=== PATIENT | female | born 1995 | race American Indian/Alaskan Native ===

== ENCOUNTER 2021-07-11 03:38 | Emergency (ER) | payer OTHER ==
[2021-07-11 03:45] VITALS: BP 137/85
--- NOTE | 2021-07-11 06:43 | Emergency Department Report ---
ED General Adult HPI - General Chief complaint: Skin/Abscess/Foreign Body Stated complaint: FB STUCK IN VAGINA Time Seen by Provider: 07/11/21 05:20 Source: patient Mode of arrival: Ambulatory Limitations: No Limitations - History of Present Illness Initial comments: 26-year-old female with with elevated BMI presents emerge department complaining of suspected foreign body in the vaginal canal in the form of a condom which was left in earlier this evening and she was unable to retrieve. She reports no fever, chills, sweats no chest pain palpitation no nausea no vomiting Severity scale (0 -10): 0 Consistency: constant Improves with: none Worsens with: none Associated Symptoms: denies other symptoms - Related Data Previous Rx's Medication Instructions Recorded Last Taken Type Doxycycline Hyclate [Doxycycline 100 mg PO Q12HR #20 tab 07/11/21 Unknown Rx Hyclate TAB] metroNIDAZOLE [Flagyl] 500 mg PO Q12HR #7 tab 07/11/21 Unknown Rx Allergies Allergy/AdvReac Type Severity Reaction Status Date / Time No Known Allergies Allergy Unverified 07/11/21 03:45 ED Review of Systems ROS: Stated complaint: FB STUCK IN VAGINA Other details as noted in HPI Comment: All other systems reviewed and negative ED Past Medical Hx - Past Medical History Previous Medical History?: No - Surgical History Past Surgical History?: No - Medications Home Medications: Home Medications Medication Instructions Recorded Confirmed Last Taken Type Doxycycline Hyclate [Doxycycline 100 mg PO Q12HR #20 tab 07/11/21 Unknown Rx Hyclate TAB] metroNIDAZOLE [Flagyl] 500 mg PO Q12HR #7 tab 07/11/21 Unknown Rx ED Physical Exam - General Limitations: No Limitations General appearance: alert, in no apparent distress - Head Head exam: Present: atraumatic, normocephalic - Eye Eye exam: Present: normal appearance - ENT ENT exam: Present: mucous membranes moist - Neck Neck exam: Present: normal inspection - Respiratory Respiratory exam: Present: normal lung sounds bilaterally. Absent: respiratory distress - Cardiovascular Cardiovascular Exam: Present: regular rate, normal rhythm. Absent: systolic murmur, diastolic murmur, rubs, gallop - GI/Abdominal GI/Abdominal exam: Present: soft, normal bowel sounds - External exam: Present: normal external exam Speculum exam: Present: vaginal discharge (Yellowish creamy vaginal discharge.), foreign body (Foreign body was visualized from the con[place]ium removed with a sponge forceps with no trauma), other Bi-manual exam: Present: normal bi-manual exam - Extremities Exam Extremities exam: Present: normal inspection - Back Exam Back exam: Present: normal inspection - Neurological Exam Neurological exam: Present: alert, oriented X3 - Psychiatric Psychiatric exam: Present: normal affect, normal mood - Skin Skin exam: Present: warm, dry, intact, normal color. Absent: rash ED Course Vital Signs 07/11/21 03:44 Temperature 98.5 F Pulse Rate 74 Respiratory 16 Rate Blood Pressure 137/85 [Left] O2 Sat by Pulse 100 Oximetry Critical care attestation.: If time is entered above; I have spent that time in minutes in the direct care of this critically ill patient, excluding procedure time. ED Disposition Clinical Impression: Vaginal foreign body, Vaginal discharge Disposition: 01 HOME / SELF CARE / HOMELESS Is pt being admited?: No Does the pt Need Aspirin: No Condition: Stable Instructions: Vaginal Foreign Body Prescriptions: Doxycycline Hyclate [Doxycycline Hyclate TAB] 100 mg PO Q12HR #20 tab metroNIDAZOLE [Flagyl] 500 mg PO Q12HR #7 tab Referrals: [facility] [Provider Group] - 3-5 Days [facility], [Primary Care Provider] - 3-5 Days
== END 2021-07-11 07:18 | disposition home or self-care (01) ==
LOC: ED 03:38
DX: T19.2XXA Foreign body in vulva and vagina, initial encounter (principal); N89.8 Other specified noninflammatory disorders of vagina; X58.XXXA Exposure to other specified factors, initial encounter; Y93.89 Activity, other specified; Y92.89 Other specified places as the place of occurrence of the external cause; Y99.8 Other external cause status
CPT/HCPCS: 99282; 99283

== ENCOUNTER 2022-01-24 11:41 | Emergency (ER) | payer OTHER ==
[2022-01-24] MEDS ORDERED: MORPHINE 4 MG/1 ML INJ IV ONE (13:59)
[2022-01-24] MEDS ORDERED: ONDANSETRON 4 MG/2 ML INJ IV ONE (13:59)
[2022-01-24 14:35] LABS: Hematocrit 38.5 % (30.3-42.9); Hemoglobin 12.9 gm/dl (10.1-14.3); Mean Corpuscular HGB Conc 34 % (30-34); Mean Corpuscular Volume 84 fl (79-97); Platelet Count 295 K/mm3 (140-440); Red Blood Count 4.56 M/mm3 (3.65-5.03); Red Cell Distribution Width 16.3 % (13.2-15.2)
[2022-01-24 15:02] LABS: Alanine Aminotransferase 11 units/L (7-56); Albumin 4.4 g/dL (3.9-5); BUN/Creatinine Ratio 7; Blood Urea Nitrogen 6 mg/dL (7-17); Calcium 9.4 mg/dL (8.4-10.2); Hemolysis Index 5
[2022-01-24 15:32] LABS: Mucus,Urine FEW /HPF
[2022-01-24 15:33] LABS: Bilirubin,Urine NEG (Negative); Blood,Urine NEG (Negative); Color,Urine Straw (Yellow); Protein,Urine <15 mg/dL mg/dL (Negative); Urobilinogen,Urine < 2.0 mg/dL (<2.0)
--- NOTE | 2022-01-24 16:28 | Cat Scan Report ---
CT ABDOMEN AND PELVIS WITH IV CONTRAST INDICATION: rlq PAIN. COMPARISON: None available. TECHNIQUE: All CT scans at this facility use dose modulation, automated exposure control, iterative reconstructi on or weight based dosing, when appropriate, to reduce radiation dose to as low as reasonably achieva ble. FINDINGS: Lung Bases: No significant abnormality. Skeletal System: No acute abnormality. ABDOMEN: Liver: No significant abnormality. Gallbladder: No significant abnormality. Bile Ducts: No significant abnormality. Adrenals: No significant abnormality. Right Kidney: No significant abnormality. Left Kidney: No significant abnormality. Pancreas: No significant abnormality. Spleen: No significant abnormality. Upper GI tract: No significant abnormality. Lymph Nodes: No significant adenopathy. Aorta: No significant abnormality. Additional Findings: No significant abnormality. PELVIS: Colon: No significant abnormality. Urinary Bladder and Distal Ureters: No significant abnormality. Appendix: No significant abnormality. Lymph Nodes: No significant adenopathy. Additional Findings: Trace free fluid in the cul-de-sac is likely physiologic given the patient's age . IMPRESSION: 1. No acute process in the abdomen or pelvis. The appendix is normal. Signer Name: Jah Tellez MD Signed: 01/24/2022 4:17 PM Workstation Name: [id number]
[2022-01-24] MEDS ORDERED: cefTRIAXone/NS 1 GM/50 ML 1 GM/50 ML BAG IV ONE (16:34)
[2022-01-24] MEDS ORDERED: KETOROLAC 30 MG/1 ML INJ IV ONE (16:34)
--- NOTE | 2022-01-24 16:39 | Emergency Department Report ---
ED Abdominal Pain HPI - General Chief Complaint: Abdominal Pain Stated Complaint: PELVIC PAIN Time Seen by Provider: 01/24/22 13:57 Source: patient Mode of arrival: Ambulatory Limitations: No Limitations - History of Present Illness Initial Comments: 26-year-old black female with a past medical history of asthma presents to the emergency department for evaluation of 4-day history of worsening pelvic pain. She states that when pain initially started she it was improved when she got into a hot shower, but over the last couple of days pain has been much more intense with no improvement. She states that she has not had a fever, nausea, vomiting, diarrhea, or vaginal discharge. But she states that she has had some dysuria. She states that pain is 10 out of 10 and worse when she is sitting down. MD Complaint: abdominal pain -: Gradual, days(s) (For) Location: LLQ, RLQ, suprapubic Radiation: none Migration to: no migration Severity scale (0 -10): 10 Quality: aching Consistency: constant Worsens With: movement Associated Symptoms: dysuria. denies: nausea, vomiting, diarrhea, fever, chills, hematemesis, hematochezia, melena, hematuria, anorexia, syncope - Related Data Previous Rx's Medication Instructions Recorded Last Taken Type Doxycycline Hyclate [Doxycycline 100 mg PO Q12HR #20 tab 07/11/21 Unknown Rx Hyclate TAB] metroNIDAZOLE [Flagyl] 500 mg PO Q12HR #7 tab 07/11/21 Unknown Rx Phenazopyridine [Pyridium] 200 mg PO BID #6 tab 01/24/22 Unknown Rx cephALEXin [Keflex] 500 mg PO Q12HR #14 cap 01/24/22 Unknown Rx Allergies Allergy/AdvReac Type Severity Reaction Status Date / Time No Known Allergies Allergy Unverified 01/24/22 12:42 ED Review of Systems ROS: Stated complaint: PELVIC PAIN Other details as noted in HPI Comment: All other systems reviewed and negative Constitutional: denies: chills, fever ENT: denies: ear pain Respiratory: denies: cough, shortness of breath Cardiovascular: denies: chest pain, palpitations, dyspnea on exertion Gastrointestinal: abdominal pain. denies: nausea, vomiting, diarrhea, hematemesis, melena, hematochezia Genitourinary: dysuria. denies: urgency, frequency, hematuria, discharge, abnormal menses Musculoskeletal: denies: back pain Skin: denies: rash, lesions ED Past Medical Hx - Past Medical History Previous Medical History?: No - Surgical History Past Surgical History?: No - Social History Smoking Status: Never Smoker - Medications Home Medications: Home Medications Medication Instructions Recorded Confirmed Last Taken Type Doxycycline Hyclate [Doxycycline 100 mg PO Q12HR #20 tab 07/11/21 Unknown Rx Hyclate TAB] metroNIDAZOLE [Flagyl] 500 mg PO Q12HR #7 tab 07/11/21 Unknown Rx Phenazopyridine [Pyridium] 200 mg PO BID #6 tab 01/24/22 Unknown Rx cephALEXin [Keflex] 500 mg PO Q12HR #14 cap 01/24/22 Unknown Rx ED Physical Exam - General Limitations: No Limitations General appearance: alert, in no apparent distress - Head Head exam: Present: atraumatic, normocephalic - Eye Eye exam: Present: normal appearance. Absent: conjunctival injection - ENT ENT exam: Present: normal exam - Neck Neck exam: Present: normal inspection, full ROM. Absent: lymphadenopathy - Respiratory Respiratory exam: Present: normal lung sounds bilaterally. Absent: respiratory distress, wheezes, rales, rhonchi, stridor, chest wall tenderness - Cardiovascular Cardiovascular Exam: Present: regular rate, normal heart sounds - GI/Abdominal GI/Abdominal exam: Present: soft, tenderness (Bilateral lower quadrant), guarding, normal bowel sounds. Absent: distended, rebound, rigid - Extremities Exam Extremities exam: Present: normal inspection, normal capillary refill. Absent: pedal edema, joint swelling, calf tenderness - Back Exam Back exam: Present: normal inspection. Absent: CVA tenderness (R), CVA tenderness (L), vertebral tenderness - Neurological Exam Neurological exam: Present: alert, oriented X3 - Psychiatric Psychiatric exam: Present: normal affect, normal mood - Skin Skin exam: Present: warm, dry, intact, normal color ED Course Vital Signs 01/24/22 01/24/22 01/24/22 12:39 17:05 19:03 Temperature 98.7 F 98.6 F 95.3 F L Pulse Rate 68 68 71 Respiratory 18 16 16 Rate Blood Pressure 129/72 Blood Pressure 128/72 133/71 [Right] O2 Sat by Pulse 99 100 97 Oximetry ED Medical Decision Making - Lab Data Result diagrams: 01/24/22 14:07 01/24/22 14:07 - Radiology Data Radiology results: report reviewed CT abdomen and pelvis with contrast: FINDINGS: Lung Bases: No significant abnormality. Skeletal System: No acute abnormality. ABDOMEN: Liver: No significant abnormality. Gallbladder: No significant abnormality. Bile Ducts: No significant abnormality. Adrenals: No significant abnormality. Right Kidney: No significant abnormality. Left Kidney: No significant abnormality. Pancreas: No significant abnormality. Spleen: No significant abnormality. Upper GI tract: No significant abnormality. Lymph Nodes: No significant adenopathy. Aorta: No significant abnormality. Additional Findings: No significant abnormality. PELVIS: Colon: No significant abnormality. Urinary Bladder and Distal Ureters: No significant abnormality. Appendix: No significant abnormality. Lymph Nodes: No significant adenopathy. Additional Findings: Trace free fluid in the cul-de-sac is likely physiologic given the patient's age. IMPRESSION: 1. No acute process in the abdomen or pelvis. The appendix is normal. - Medical Decision Making 26-year-old black female with a past medical history of asthma presents to the emergency department for evaluation of 4-day history of worsening pelvic pain. She states that when pain initially started she it was improved when she got into a hot shower, but over the last couple of days pain has been much more intense with no improvement. She states that she has not had a fever, nausea, vomiting, diarrhea, or vaginal discharge. But she states that she has had some dysuria. She states that pain is 10 out of 10 and worse when she is sitting do wn. Patient noted to have tenderness to the lower quads right greater than left on assessment. No gross abnormalities noted on labs. Urine positive for urinary tract infection. CT scan without any acute abnormalities noted. Patient will be treated with one-time dose of Rocephin IV in the emergency department along with morphine and Toradol for pain and Zofran for nausea. She will be discharg ed home with 7-day course of Keflex along with 3 days of Pyridium. She is advised to take medications as prescribed and follow-up with primary care provider if no improvement or worsening symptoms. She verbalizes understanding of and agreement with plan of care. Critical care attestation.: If time is entered above; I have spent that time in minutes in the direct care of this critically ill patient, excluding procedure time. ED Disposition Clinical Impression: UTI (urinary tract infection) Qualifiers: Urinary tract infection type: acute cystitis Hematuria presence: without hematuria Qualified Code(s): N30.00 - Acute cystitis without hematuria Disposition: HOME / SELF CARE / HOMELESS Is pt being admited?: No Does the pt Need Aspirin: No Condition: Stable Instructions: Antibiotic Medicine, Adult, [id number], Urinary Tract Infection, Adult, [id number], Abdominal Pain (ED) Additional Instructions: Take medications as prescribed. Increase intake of noncaffeinated fluids. Follow-up with primary care provider if no improvement or worsening symptoms. Return to the emergency department as needed. Prescriptions: cephALEXin [Keflex] 500 mg PO Q12HR #14 cap Phenazopyridine [Pyridium] 200 mg PO BID #6 tab Referrals: [facility] [Provider Group] - 3-5 Days ONEIL SHEPPARD MD [Staff Physician] - 3-5 Days Forms: Work/School Release Form(ED) Time of Disposition: 16:39
[2022-01-24 19:04] VITALS: BP 133/71
== END 2022-01-24 19:03 | disposition home or self-care (01) ==
LOC: ED 11:41
DX: N39.0 Urinary tract infection, site not specified (principal)
CPT/HCPCS: 36415; 74177; 80053; 81001; 83690; 84703; 85027; 96365; 96375; 99284; J0696; J1885; J2270; J2405; Q9967